=== PATIENT | female | born 1965 | race Caucasian/White ===

== ENCOUNTER 2018-07-27 09:03 | Emergency (ER) | payer BC ==
[2018-07-27 11:21] VITALS: BP 138/70
--- NOTE | 2018-07-27 11:39 | UC ---
FLU HPI - HPI Summary HPI Summary: 53-year-old woman comes in with a chief complaint of one day of bodyaches fevers chills and not feeling well. Her mother is diagnosed with influenza. Yesterday she felt a little bit off but not really ill. Some chest congestion no shortness of breath. Has not Taken any [id number] medications for her symptoms. - History of Current Complaint Chief Complaint: UCGeneralIllness Stated Complaint: BODY ACHES, COUGH, FLU EXPOSURE Time Seen by Provider: 07/27/18 11:29 Pain Intensity: 6 - Allergy/Home Medications Allergies/Adverse Reactions: Allergies Allergy/AdvReac Type Severity Reaction Status Date / Time cephalexin Allergy Rash Verified 07/27/18 11:12 MS Cephalexin [From Keflex] Allergy Rash Verified 07/27/18 11:12 Home Medications: Home Medications Biotin [Biotin Gummies] 1,000 mcg PO DAILY 07/27/18 [History Confirmed 07/27/18] L.acidoph,Paracasei, B.lactis [Probiotic] 1 each PO DAILY 07/27/18 [History Confirmed 07/27/18] Levothyroxine TAB* [Synthroid TAB*] 75 mcg PO DAILY 07/27/18 [History Confirmed 07/27/18] PMH/Surg Hx/FS Hx/Imm Hx Previously Healthy: Yes Endocrine History: Hypothyroidism - Surgical History Surgical History: Yes Surgery Procedure, Year, and Place: PARTIAL THYROIDECTOMY 2006 - Family History Known Family History: Positive: Non-Contributory - Social History Alcohol Use: Occasionally Substance Use Type: None Smoking Status (MU): Never Smoked Tobacco Review of Systems All Other Systems Reviewed And Are Negative: Yes Constitutional: Positive: Fever, Chills Skin: Positive: Negative Eyes: Positive: Negative ENT: Positive: Sore Throat - mild, Nasal Discharge Respiratory: Positive: Negative Cardiovascular: Positive: Negative Gastrointestinal: Positive: Negative Motor: Positive: Negative Neurovascular: Positive: Negative Musculoskeletal: Positive: Myalgia Neurological: Positive: Headache - mild Psychological: Positive: Negative Is Patient Immunocompromised?: No Physical Exam Triage Information Reviewed: Yes Appearance: No Pain Distress, Well-Nourished, Ill-Appearing - mild Vital Signs: Initial Vital Signs Temp 98.5 F 07/27/18 11:14 Pulse 79 07/27/18 11:14 Resp 15 07/27/18 11:14 BP 138/70 07/27/18 11:14 Pulse Ox 100 07/27/18 11:14 Vital Signs Reviewed: Yes Eye Exam: Normal Eyes: Positive: Conjunctiva Clear ENT: Positive: Pharynx normal, TMs normal Neck exam: Normal Neck: Positive: Supple Respiratory: Positive: Lungs clear, Normal breath sounds, No respiratory distress Cardiovascular: Positive: RRR Musculoskeletal Exam: Normal Musculoskeletal: Positive: Strength Intact, ROM Intact Neurological Exam: Normal Neurological: Positive: Alert, Muscle Tone Normal Psychological Exam: Normal Psychological: Positive: Age Appropriate Behavior Skin Exam: Normal Flu Course/Dx - Course Course Of Treatment: Discussed the flu test results with the patient also. Discussed treatment with Tamiflu. At this time with her mother having the flu patient prefers to be on Tamiflu. Follow-up with her primary care doctor reevaluation sooner if worse or any other questions or concerns. - Differential Dx/Diagnosis Provider Diagnosis: Influenza-like illness Discharge - Sign-Out/Discharge Documenting (check all that apply): Patient Departure All imaging exams completed and their final reports reviewed: No Studies - Discharge Plan Condition: Stable Disposition: HOME Prescriptions: Oseltamivir CAP* [Tamiflu CAP*] 75 mg PO BID #10 cap Patient Education Materials: Influenza (ED) Referrals: Maryjane Ferrell MD [Primary Care Provider] - Additional Instructions: FOLLOW UP WITH YOUR DOCTOR IF NOT COMPLETELY IMPROVED. GET RECHECKED FOR ANY WORSENING OF YOUR CONDITION OR QUESTIONS OR CONCERNS. - Billing Disposition and Condition Condition: STABLE Disposition: Home
[2018-07-27 11:49] LABS: Influenza A Molecular NEGATIVE (Negative); Influenza B Molecular NEGATIVE (Negative)
== END 2018-07-27 11:59 | disposition home or self-care (01) ==
LOC: UCCORT 09:03
DX: J11.1 Influenza due to unidentified influenza virus with other respiratory manifestations (principal); E03.9 Hypothyroidism, unspecified; Z88.1 Allergy status to other antibiotic agents; Z79.899 Other long term (current) drug therapy
CPT/HCPCS: 99212; G0463

== ENCOUNTER 2018-12-09 09:28 | Day surgery (SDC) | payer BC ==
[~2018-12-09 09:28] MED LIST: Buffered Lidocaine 1% SYRIN* 1 ML/SYRINGE INTRADERM ONE; Dexamethasone IV* 4 MG/ML 1 ML (4 MG) IV SLOW PU ONE; Famotidine IV* 10 MG/ML 2 ML (20 mg) IV ONE; Lactated Ringers 1000 ML Bag* 1,000 ML IV SCH; Scopolamine 1.5 mg* PATCH TRANSDERM ONE
[2018-12-09] MEDS ORDERED: Buffered Lidocaine 1% SYRIN* 1 ML/SYRINGE INTRADERM ONE (10:15)
[2018-12-09] MEDS ORDERED: Dexamethasone IV* 4 MG/ML 1 ML (4 MG) ONE (10:15)
[2018-12-09] MEDS ORDERED: Scopolamine 1.5 mg* PATCH ONE (10:15)
[2018-12-09] MEDS ORDERED: Famotidine IV* 10 MG/ML 2 ML (20 mg) ONE (10:15)
[2018-12-09 11:05] LABS: Hematocrit 44 % (35-47); Hemoglobin 15.2 g/dL (12.0-16.0); Mean Corpuscular HGB Conc 35 g/dL (31-36); Mean Corpuscular Hemoglobin 31 pg (27-31); Mean Corpuscular Volume 90 fL (80-97); Mean Platelet Volume 8.6 fL (7.4-10.4); Platelet Count 307 10^3/uL (150-450); Red Blood Count 4.83 10^6 /uL (3.70-4.87); Red Cell Distribution Width 13 % (10-15); White Blood Count 6.9 10^3/uL (3.5-10.8)
[2018-12-09] MEDS ORDERED: Ondansetron INJ* 2 MG/ML VIAL ONE (11:39)
[2018-12-09] MEDS ORDERED: Propofol* 10 MG/ML 20 ML BTL ONE (11:39)
[2018-12-09] MEDS ORDERED: Lidocaine 2% PF * 5 ML VIAL ONE (11:39)
[2018-12-09] MEDS ORDERED: Midazolam* 1 MG/ML 2 ML VIAL (2 MG) ONE (11:39)
[2018-12-09] MEDS ORDERED: Ketorolac INJ* 30 MG/ML 1 ML VIAL ONE (11:39)
[2018-12-09] MEDS ORDERED: DiMENhydriNATE IV* 50 MG/ML VIAL IV PUSH PRN (12:21)
[2018-12-09] MEDS ORDERED: fentaNYL* 50 MCG/ML 2 ML VIAL (100 MCG VIAL) IV PRN (12:21)
[2018-12-09] MEDS ORDERED: Naloxone* 0.4 MG/ML 1 ML VIAL IV PRN (12:21)
[2018-12-09] MEDS ORDERED: fentaNYL* 50 MCG/ML 2 ML VIAL (100 MCG VIAL) ONE ×2 (12:38→13:05)
[2018-12-09] MEDS ORDERED: oxyCODONE/Acetamin 5/325 MG* TAB ONE (13:14)
--- NOTE | 2018-12-09 13:32 | OP ---
CC: [facility] OPERATIVE REPORT: DATE OF OPERATION: 12/09/18 DATE OF : 65 SURGEON: Italia Palma MD ANESTHESIOLOGIST: Dr. Ramsey. ANESTHESIA: General endotracheal anesthesia PRE-OP DIAGNOSIS: Irregular vaginal bleeding, thickened endometrium on ultrasound. POST-OP DIAGNOSIS: Irregular vaginal bleeding, thickened endometrium on ultrasound. OPERATIVE PROCEDURE: 1. Dilation hysteroscopy. 2. MyoSure polypectomy. 3. Curettage. ESTIMATED BLOOD LOSS: Minimal, less than 20 cc. SPECIMEN: Endometrial polyp with endometrial curettings. FLUIDS: Per Anesthesia, deficit 200 cc. FINDINGS: Midline uterus, atrophic-appearing endometrium except 1 small polyp near the tubal ostia. No adnexal masses were palpated. Both tubal ostia were visualized. There was a grade 2 to 3 cystoc skylar. COMPLICATIONS: None. COUNTS: Sponge count correct x2. CONDITION: The patient tolerated the procedure well and was brought to the recovery room awake and i n stable condition. DESCRIPTION OF PROCEDURE: The patient was brought to the operating room, when general anesthesia was found to be adequate, she was prepped and draped in usual sterile fashion in the dorsal lithotomy po sition. Time-out was performed. Exam under anesthesia was performed with the above findings noted. Weighted speculum was placed in the vagina, anterior lip of the cervix was grasped with a single- to oth tenaculum and the cervix was gently and easily dilated with the graduated dilators. The hysteros cope was introduced and a small polyp was seen by the tubal ostia. The MyoSure Reach was used to rem ove the polyp in its entirety. The MyoSure was removed. The curettage was performed. Endometrial c urettings and endometrial polyp were sent to Pathology as one specimen. The single-tooth tenaculum w as removed from the anterior lip of the cervix. Excellent hemostasis was noted. All instruments wer e removed from the vagina. The patient tolerated the procedure well and was brought to the recovery room awake and in stable condition. [id number]/[facility] #: [id number]
[2018-12-09 14:03] VITALS: BP 121/78
== END 2018-12-09 14:20 | disposition home or self-care (01) ==
LOC: OR 09:28
PROVIDERS: ATTEND Obstetrics & Gynecology
DX: N92.5 Other specified irregular menstruation (principal); N84.0 Polyp of corpus uteri; N63.0 Unspecified lump in unspecified breast
CPT/HCPCS: 36415; 81025; 85027; 86850; 86900; 86901; 88305; A9270-GY; J1100; J1885; J2250; J2405; J2704; J3010

== ENCOUNTER → 2018-12-29 05:39 | Day surgery (SDC) | payer BC ==
[~2018-12-29 05:39] MED LIST changes: +Acetaminophen TAB* 325 MG ONE; +Clindamycin 900 MG IVPREMIX(* 900 MG/50 ML SDV IV ONE; -Dexamethasone IV* 4 MG/ML 1 ML (4 MG) IV SLOW PU ONE; +Dexamethasone IV* 4 MG/ML 1 ML (4 MG) ONE; -Famotidine IV* 10 MG/ML 2 ML (20 mg) IV ONE; +Iohexol 180 (CONTRAST) 10 ML SDV IV ONE; +Iohexol 300 (CONTRAST) 100 ML SDV IV ONE; +Lidocaine 1% INJ* 10 MG/ML 30 ML SDV ONE; +Midazolam* 1 MG/ML 2 ML VIAL (2 MG) ONE; +Midazolam* 1 MG/ML 5 ML VIAL (5 MG) ONE; +Naloxone* 0.4 MG/ML 1 ML VIAL IV PRN; +Ondansetron INJ* 2 MG/ML VIAL IV PRN; +Propofol* 10 MG/ML 20 ML BTL ONE; +Scopolamine 1.5 mg* PATCH ONE; -Scopolamine 1.5 mg* PATCH TRANSDERM ONE; +fentaNYL* 50 MCG/ML 2 ML VIAL (100 MCG VIAL) IV PRN; +fentaNYL* 50 MCG/ML 2 ML VIAL (100 MCG VIAL) ONE; +oxyCODONE/Acetamin 5/325 MG* TAB PO PRN
[2018-12-29 09:50] VITALS: BP 129/73
[2018-12-29 09:58] LABS: ABS Basophils 0.1 10^3/ul (0-0.2); ABS Eosinophils 0.1 10^3/ul (0-0.6); ABS Lymphocytes 0.7 10^3/ul (1.0-4.8); ABS Monocytes 0.2 10^3/ul (0-0.8); Eosinophil % 0.8 %; Hematocrit 39 % (35-47); Hemoglobin 13.5 g/dL (12.0-16.0); Lymphocyte % 10.1 %; Mean Corpuscular HGB Conc 35 g/dL (31-36); Mean Corpuscular Hemoglobin 31 pg (27-31); Mean Corpuscular Volume 90 fL (80-97); Mean Platelet Volume 8.5 fL (7.4-10.4); Platelet Count 281 10^3/uL (150-450); Red Blood Count 4.34 10^6 /uL (3.70-4.87); Red Cell Distribution Width 13 % (10-15)
[2018-12-29 10:14] LABS: Albumin 4.4 g/dL (3.2-5.2); Albumin/Globulin Ratio 1.8 (1-3); BUN/Creatinine Ratio 15.7 (8-20); Calcium 9.4 mg/dL (8.6-10.3); EGFR African American 105.9 (>60); EGFR Non-African American 87.5 (>60); Globulin 2.4 g/dL (2-4); Potassium 4.2 mmol/L (3.5-5.0); Total Bilirubin 0.7 mg/dL (0.2-1.0); Total Protein 6.8 g/dL (6.4-8.9)
--- NOTE | 2018-12-29 14:45 | OP ---
DATE OF OPERATION: 12/29/18 - [facility] DATE OF : 65 SERVICE: General Surgery. ATTENDING SURGEON: Lakisha Covington MD GRE INSTRUCTOR: None. ANESTHESIOLOGIST: Fili Hodges MD ANESTHESIA: General endotracheal anesthesia PREP-OP DIAGNOSIS: Left breast cancer. POST-OP DIAGNOSIS: Left breast cancer. OPERATIVE PROCEDURE: Placement of 8-Gambian port in right internal jugular vein. INDICATION FOR SURGERY: Ms. Dennis is a very pleasant 53-year-old female with recently diagnosed triple negative left breast cancer who requires neoadjuvant chemotherapy. She therefore gave informed consent for placement of a port. She understood the risks, benefits, and alternatives of the procedure and she wished to proceed. DESCRIPTION OF PROCEDURE: The patient was brought back to the operating room and placed on the operating table in the supine position. Sequential compression devices were placed in the bilateral lower extremities for DVT prophylaxis. Antibiotics with clindamycin was administered. The patient underwent local MAC anesthesia and then her right neck and chest wall were prepped and draped in normal sterile fashion. Prior to beginning the procedure , a time-out was performed verifying the patient's name, MR number, and the procedure to be performed. The right internal jugular vein was accessed using ultrasound guidance. Once the needle was in the internal jugular vein and venous blood was aspirated, the wire was placed through the needle and the needle was removed. Fluoroscopy showed that the wire appeared to have descended in the SVC; however, it appeared to have somehow coiled on itself and therefore it was removed and a second stick was made with venous blood aspirated very easily; however, the guidewire when was placed, there was a small amount of resistance that was felt. The track was dilated with a small dilator but there was some left swartz deviation, therefore the decision was made to remove the dilator and the wire and then a third stick was made in the right internal jugular vein and this time without difficulty the original guidewire was placed into the internal jugular vein and noted to be in place under fluoroscopy. It did appear that the wire seemed to have crossed the midline towards the left side; however, it was certainly in the superior vena in the ventricle. Therefore, the wire was secured to the drapes and a right chest wall subcutaneous pocket was developed after administering local anesthesia with 1% lidocaine to the chest wall. Once this pocket was made, hemostasis was obtained the port was placed into the pocket and was loosely secured posteriorly with 3-0 Prolene sutures. Next, the 1% lidocaine was administered to the subcutaneous track where the tunnelled catheter would be placed. Next, using a sharp tunneler, the 8- Gambian catheter was tunneled from the pocket of the port site up towards the neck where the wire was coming out. Next, the dilator and the sheath were advanced over the wire and the wire and the dilator were removed. Fluoroscopy confirmed that the peel-away sheath was still in the appropriate location. Next, the catheter was placed through the sheath and the peel-away sheath was then removed. Under fluoroscopy, catheter was confirmed to be in the ventricle and it was pulled back to approximately about 18 to 19 cm at the chest wall where it was cut and attached to the port. At this point, the Prolene sutures were used to secure it to the chest wall and Crandall needle was placed through the port and blood was aspirated very easily and saline could be injected very easily. Under fluoroscopy, the catheter appeared to be in place at the cavoatrial junction. Next, hemostasis was ensured in the subcutaneous pocket and the subdermis was closed using interrupted 3- 0 Vicryl sutures and then the skin was closed using a running 4-0 Monocryl suture. At the neck where the catheter had been advanced through the peel-away sheath was also closed using interrupted 4-0 Monocryl sutures. Sterile dressing was then placed. The Crandall needle was attached given that the patient was undergoing chemotherapy today. She was awoken and she was taken to the PACU in stable condition. At the end of the case, all counts were correct and I was present through the entirety of the case. Postoperative chest x-ray confirmed that the catheter was in place at the cavoatrial junction and that there was no pneumothorax. Also, the patient was noted to have pectus excavatum with mediastinal structures shifted towards the left. [id number]/[facility] #: [id number]
== END | disposition home or self-care (01) ==
LOC: OR 05:39
PROVIDERS: ATTEND Surgery
DX: C50.912 Malignant neoplasm of unspecified site of left female breast (principal); C77.3 Secondary and unspecified malignant neoplasm of axilla and upper limb lymph nodes; E03.9 Hypothyroidism, unspecified; K58.9 Irritable bowel syndrome, unspecified; F41.9 Anxiety disorder, unspecified
CPT/HCPCS: 36415; 71045; 80053; 81025; 85025; A9270-GY; C1788; J1100; J1642; J2250; J2704; J3010